=== PATIENT | female | born 1965 | race Caucasian/White ===

== ENCOUNTER 2021-05-10 05:46 | Inpatient (IN) ==
[2021-05-04 16:01] LABS: Glucose,Urine (UA) Negative (Negative); Ketones,Urine Trace mg/dL (Negative); Protein,Urine Negative; Urine Appearance Cloudy (Clear); Urine Color Yellow (Yellow)
[2021-05-04 16:02] LABS: Basophils % 0.2 % (0.0-0.8); Eosinophils # 0.1 10*3/uL (0.0-0.87); Eosinophils % 1.4 % (0.00-10.9); Hematocrit 39.8 VOL% (35.7-47.0); Hemoglobin 12.8 GM/DL (12.0-16.0); Immature Granulocytes % 0.3 %; Immature Granulocytes Absolute 0.02 #; Lymphocytes # 2.8 10*3/uL (1.4-4.0); Lymphocytes % 44.4 % (21.3-54.2); Mean Corpuscular HGB Conc 32.2 GM/DL (32-36); Mean Corpuscular Volume 98.5 FL (87-102); Mean Platelet Volume 9.6 FL (9.6-12.0); Monocytes % 7.3 % (1.7-12.7); Neutrophils % 46.4 % (38.7-73.9); Platelet Count 253 T/CUMM (130-400); Red Blood Count 4.04 MC/CUMM (3.8-5.5); Red Cell Distribution Width 13.2 % (9.3-17.3); White Blood Count 6.3 T/CUMM (4-12)
[2021-05-04 16:02] LABS: Bilirubin,Urine Negative (Negative); Blood, Urine Small mg/dL (Negative); Nitrite,Urine Negative (Negative); Urine Urobilinogen 0.2 EU/DL (<2.0)
[2021-05-04 16:04] LABS: Bacteria,Urine Occasional /HPF (Few); Mucus,Urine Occasional /LPF (Occasional); RBC,Urine 1 /HPF (0-4); Squamous Epithelial Cell,Urine Occasional /HPF (0-10)
[2021-05-04 16:11] LABS: INR 0.9; PT Patient Result 10.6 SECS (10.5-12.0); Partial Thromboplastin Time 24.3 SECS (23.8-32.1)
[2021-05-04 16:16] LABS: Calcium 9.9 MG/DL (8.5-10.1); Osmolality,Calculated 279.5 MOS/KG (273-304)
[2021-05-04 18:06] LABS: Anisocytosis Slight; Atypical Lymphocytes Few; Macrocytosis Slight; Platelet Estimate Normal
[2021-05-10] MEDS ORDERED: FAMOTIDINE 20 MG TABLET ONE (07:18)
[2021-05-10] MEDS ORDERED: GABAPENTIN 400 MG CAPSULE ONE (07:18)
[2021-05-10] MEDS ORDERED: ACETAMINOPHEN 500 MG TABLET ONE (07:18)
[2021-05-10] MEDS ORDERED: ACETAMINOPHEN 500 MG TABLET PO ONE (07:30)
[2021-05-10] MEDS ORDERED: GABAPENTIN 400 MG CAPSULE PO ONE (07:30)
[2021-05-10] MEDS ORDERED: LACTATED RINGERS 1,000 ML IV SCH (07:30)
[2021-05-10] MEDS ORDERED: FAMOTIDINE 20 MG TABLET PO ONE (07:30)
[2021-05-10] MEDS ORDERED: SCOPOLAMINE 1.5 MG PATCH TRANSDERM ONE (08:03)
[2021-05-10] MEDS ORDERED: MIDAZOLAM 2 MG/2 ML VIAL ONE (08:13)
[2021-05-10] MEDS ORDERED: fentaNYL 100 MCG/2 ML VIAL ONE ×2 (08:13→10:27)
[2021-05-10] MEDS ORDERED: BUPIVACAINE 0.5% 50 ML VIAL ONE (08:20)
[2021-05-10] MEDS ORDERED: DEXAMETHASONE 4 MG/1 ML VIAL ONE ×2 (08:32→10:42)
[2021-05-10] MEDS ORDERED: SUCCINYLCHOLINE 200 MG/10 ML VIAL ONE (10:25)
[2021-05-10] MEDS ORDERED: propofoL 200 MG/20 ML VIAL IV ONE (10:25)
[2021-05-10] MEDS ORDERED: ROCURONIUM 50 MG/5 ML VIAL IV ONE (10:25)
[2021-05-10] MEDS ORDERED: LIDOCAINE 2% 5 ML VIAL ONE (10:25)
[2021-05-10] MEDS ORDERED: ePHEDrine 50 MG/ML VIAL ONE (10:36)
[2021-05-10] MEDS ORDERED: ONDANSETRON 4 MG/2 ML VIAL ONE (10:44)
[2021-05-10] MEDS ORDERED: LACTATED RINGERS 1,000 ML IV ONE (10:49)
[2021-05-10] MEDS ORDERED: PHENYLEPHRINE 10 MG/1 ML VIAL IV ONE (10:51)
[2021-05-10] MEDS ORDERED: SODIUM CHLORIDE 0.9% 100 ML IV ONE (10:58)
[2021-05-10] MEDS ORDERED: GLYCOPYRROLATE 0.4 MG/2 ML VIAL ONE (10:58)
[2021-05-10] MEDS ORDERED: SUGAMMADEX 200 MG/2 ML VIAL IV ONE (11:18)
[2021-05-10] MEDS ORDERED: KETOROLAC 30 MG/1 ML VIAL ONE (11:20)
[2021-05-10] MEDS: LACTATED RINGERS 1,000 ML IV SCH ×2 (11:31→18:12)
[2021-05-10] MEDS ORDERED: IBUPROFEN 800 MG TABLET PO PRN (11:46)
[2021-05-10] MEDS ORDERED: BISACODYL 10 MG SUPP RECTAL PRN (11:46)
[2021-05-10] MEDS ORDERED: BENZOCAINE/MENTHOL LOZENGE 18/BOX PO PRN (11:46)
[2021-05-10] MEDS ORDERED: ACETAMINOPHEN 325 MG TABLET PO PRN (11:46)
[2021-05-10] MEDS ORDERED: DOCUSATE SODIUM 100 MG CAPSULE PO PRN (11:46)
[2021-05-10] MEDS ORDERED: ONDANSETRON 4 MG/2 ML VIAL IV PRN (11:46)
[2021-05-10] MEDS ORDERED: MAGNESIUM HYDROXIDE SUSP 30 ML UDCUP PO PRN (11:46)
[2021-05-10] MEDS ORDERED: MEPERIDINE 25 MG/1 ML VIAL IM PRN (11:48)
[2021-05-10] MEDS ORDERED: SEVOFLURANE 1 UNIT/15 MINUTE INH ONE (11:49)
[2021-05-10 12:24] LABS: Bacteria,Urine Occasional /HPF (Few); Hyaline Casts,Urine 47 /LPF (0-3); Mucus,Urine Few /LPF (Occasional); RBC,Urine 4 /HPF (0-4); Squamous Epithelial Cell,Urine Occasional /HPF (0-10)
[2021-05-10 12:29] LABS: Bilirubin,Urine Negative (Negative); Blood, Urine Trace mg/dL (Negative); Glucose,Urine (UA) Negative (Negative); Ketones,Urine Negative (Negative); Nitrite,Urine Negative (Negative); Protein,Urine Negative; Urine Appearance Clear (Clear); Urine Color Yellow (Yellow); Urine Specific Gravity 1.021 (1.001-1.035); Urine Urobilinogen 0.2 EU/DL (<2.0); Urine pH 5.5 (4.5-8.0)
[2021-05-10] MEDS ORDERED: INFLUENZA VIRUS VACCINE 0.5 ML SYRINGE IM ONE (13:24)
[2021-05-10] MEDS ORDERED: MEPERIDINE 50 MG/1 ML VIAL ONE (14:00)
[2021-05-10] MEDS ORDERED: MEPERIDINE 50 MG/1 ML VIAL IV PRN (14:05)
[2021-05-10] MEDS: KETOROLAC 30 MG/1 ML VIAL IV SCH ×2 (18:10→23:52)
[2021-05-11] MEDS ORDERED: ACETAMINOPHEN 325 MG TABLET PO PRN (05:29)
[2021-05-11] MEDS: KETOROLAC 30 MG/1 ML VIAL IV SCH (05:30)
[2021-05-11 06:02] LABS: Basophils % 0.1 % (0.0-0.8); Hematocrit 36.4 VOL% (35.7-47.0); Immature Granulocytes % 0.9 %; Immature Granulocytes Absolute 0.11 #; Lymphocytes # 0.8 10*3/uL (1.4-4.0); Lymphocytes % 6.5 % (21.3-54.2); Mean Corpuscular Volume 98.1 FL (87-102); Mean Platelet Volume 9.7 FL (9.6-12.0); Monocytes % 2.3 % (1.7-12.7); Neutrophils % 90.2 % (38.7-73.9); Platelet Count 225 T/CUMM (130-400); Red Blood Count 3.71 MC/CUMM (3.8-5.5); White Blood Count 12.6 T/CUMM (4-12)
[2021-05-11 06:26] LABS: Band Neutrophils 1 % (0-10); Hypochromia Slight; Lymphocytes 4 % (20-55); Microcytosis Slight; Platelet Estimate Adequate; Segmented Neutrophils 90 % (50-85); Total Cells Counted 100
[2021-05-11 07:15] VITALS: BP 92/49
[2021-05-11] MEDS ORDERED: ESTRADIOL VALERATE IM 100 MG/5 ML VIAL IM ONE (09:00)
== END 2021-05-11 11:10 | disposition home or self-care (01) | DRG 743 ==
LOC: N.OR 05:46 → N.SDSINP 05:48 → N.OB 12:35
PROVIDERS: ADMIT Specialist; ATTEND Specialist